=== PATIENT | female | born 1935 | race Asian ===

== ENCOUNTER 2019-05-02 20:34 | Emergency (ER) | payer OTHER ==
[~2019-05-02] VITALS: Ht 152.4 cm; Wt 40.8 kg
[2019-05-02 21:00] LABS: PLATELET COUNT 298 K/uL (152-353)
[2019-05-02 21:03] LABS: POTASSIUM 3.6 mmol/L (3.6-5.2)
[2019-05-02 21:39] VITALS: BP 139/56; TEMP 97.8
[2019-05-03] MEDS ORDERED: ASA LOW DOSE81 MG PO (03:25)
[2019-05-03] MEDS ORDERED: LEVE500T5 PO (03:26)
[2019-05-03] MEDS ORDERED: LIPITOR80 MG PO (03:26)
[2019-05-03] MEDS ORDERED: AMLODIPINE BESYLATE PO (03:26)
[2019-05-03] MEDS ORDERED: CLOP75TA2 PO (03:27)
[2019-05-03] MEDS ORDERED: PRINIVIL10 MG PO (03:27)
[2019-05-03] MEDS ORDERED: SEROQUEL25 MG PO (03:28)
[2019-05-03] MEDS ORDERED: FERROUS SULF140 MG PO (03:28)
[2019-05-03] MEDS ORDERED: TUMS500 MG PO (03:29)
[2019-05-03] MEDS ORDERED: OXYC5TAB53 PO (03:30)
[2019-05-03] MEDS ORDERED: MIRALAX3350 N1 PO (03:30)
[2019-05-06] MEDS ORDERED: PANTOPRAZOLE 40MG TA PO (19:23)
[2019-05-06] MEDS ORDERED: OLAN2.5T2 PO (19:23)
[2019-05-06] MEDS ORDERED: DONE5TAB PO (19:24)
[2019-05-06] MEDS ORDERED: ESCI10TA PO (19:24)
[2019-05-06] MEDS ORDERED: MEMA5TAB PO (19:24)
== END 2019-05-02 21:39 | disposition still patient (30) ==
LOC: ED 20:34
PROVIDERS: Hospitalist
DX: F03.91 Unspecified dementia, unspecified severity, with behavioral disturbance (principal); I44.7 Left bundle-branch block, unspecified; Z04.6 Encounter for general psychiatric examination, requested by authority
CPT/HCPCS: 80053; 85027; 93005; 99283